=== PATIENT | female | born 1970 | race Caucasian/White ===

== ENCOUNTER 2020-01-23 14:49 | Outpatient (CLI) | payer BC ==
--- NOTE | 2020-01-23 15:37 | ULT ---
BILATERAL CAROTID DUPLEX ULTRASOUND: HISTORY: CVA TECHNIQUE: Grayscale, color-flow and spectral Doppler ultrasound imaging of the extracranial carotid artery syst ems and vertebral arteries was performed bilaterally. FINDINGS: Incidental left and right thyroid nodules, incompletely evaluated. No large amount of echogenic plaque is seen involving the common carotid or internal carotid arteries . The peak systolic velocity in the right ICA measures 48.3 cm/s. The peak systolic velocity in the ri ght CCA measures 67.6 cm/s. The peak systolic velocity in the left ICA measures 75.2 cm/s. The peak systolic velocity in the l eft CCA measures 85.8 cm/s. The right IC/CC ration is0.71. The left IC/CC ratio is 0.88. Vertebral flow: antegrade, bilaterally. . IMPRESSION: 1. No hemodynamically significant stenosis of the left or right internal carotid artery 2. Incidental thyroid nodules. Nonemergent thyroid ultrasound is recommended. Line CODE T
== END 2020-01-23 14:50 | disposition home or self-care (01) ==
LOC: BICULT 14:49
PROVIDERS: ATTEND Family Medicine
DX: I63.511 Cerebral infarction due to unspecified occlusion or stenosis of right middle cerebral artery (principal); E04.2 Nontoxic multinodular goiter
CPT/HCPCS: 93880

== ENCOUNTER 2020-02-06 14:49 | Outpatient (CLI) | payer BC ==
--- NOTE | 2020-02-06 16:39 | ULT ---
ULTRASOUND THYROID: Date: 02/06/2020 HISTORY: 49-year-old female with thyroid nodule found on carotid Doppler ultrasound. COMPARISON: none FINDINGS: Thyroid dimensions: Isthmus: 0.7 cm AP Right lobe: 4.3 x 1.8 x 1.7 cm.. Left lobe: 6.1 x 2.5 x 2.8 cm. Thyroid parenchymal echogenicity:The normal parenchymal in the right lobe has normal echogenicity. Number of thyroid nodules:Multiple on the right, too many to count Nodule # 1: Location: Posterior aspect of right mid pole: Size: 1.3 x 0.8 x 0.8 cm. Composition: Solid: 2. Echogenicity: Hypoechoic: 2 points Shape: Gabrielle than wide: 3 points Margin: Ill-defined: 0 points Echogenic foci: None Total points: 7 TIRADS category:TR 5: Highly suspicious. Recommend FNA if greater than or equal to 1 cm. Nodule # 2: Location: Occupies entire left mid and lower poles, and much of the upper pole.: Size: 4.7 x 3.0 x 4.2 cm. Composition: Solid Echogenicity: Hypoechoic components: 2 points Shape: Wider than tall: 0 points Margin: Smooth: 0 points Echogenic foci: Punctate echogenic foci: 3 points Total points: 7 TIRADS category:TR 5: Highly suspicious. Recommend FNA if greater than or equal to 1 cm. IMPRESSION: 1) large number of small nodules in the right lobe, and one large dominant nodule in left lobe. 2) the large left nodule is TIRADS category:TR 5: Highly suspicious. Recommend ultrasound-guided fine -needle aspiration. 3) of the numerous right thyroid nodules, there is a 1.3 cm nodule that isTIRADS category:TR 5: Highl y suspicious. Recommend ultrasound-guided fine-needle aspiration. This may be technically difficult to biopsy because of its small size and posterior location, given patient's body habitus. If biopsy i s unsuccessful, then serial follow-up thyroid ultrasounds will be recommended for the right nodule.
== END 2020-02-06 14:50 | disposition home or self-care (01) ==
LOC: BICULT 14:49
PROVIDERS: ATTEND Family Medicine
DX: E04.2 Nontoxic multinodular goiter (principal)
CPT/HCPCS: 76536

== ENCOUNTER 2020-08-02 10:42 | Outpatient (CLI) | payer BC ==
--- NOTE | 2020-08-02 11:28 | ULT ---
Exam: Thyroid ultrasound HISTORY: Follow-up thyroid nodules. Multinodular goiter. COMPARISON: 02/06/2020. FINDINGS: Thyroid isthmus: 0.6 cm Right thyroid lobe: 1.7 x 1.6 x 4.5 cm Left thyroid lobe: 3.8 x 2.5 x 6.5 cm Thyroid nodules: Right thyroid lobe: Complex 0.9 x 1.3 x 1.2 cm nodule in the lower pole. Hypoechoic 0.5 x 0.9 x 1.3 c m nodule in the midpole. Left thyroid lobe: Solid nodule occupying the majority of the left thyroid lobe measuring 3.5 x 4.8 x 5.8 cm. Previously, this nodule measured 4.7 x 4.1 x 3.0 cm. IMPRESSION: 1. Left thyroid nodule: TI-RADS category TR5 - Highly suspicious. Fine-needle aspiration of the left thyroid lobe nodule is recommended given sonographic features and interval increase in size. 2. Right thyroid nodules: Largest nodule in the right thyroid lobe was also reported on the previous exam to be a TI-RADS category TR5 - Highly suspicious. There has been no appreciable change. Follow up imaging in one year is recommended. Transcribed Date/Time: 08/02/2020 1:17 PM
== END 2020-08-02 10:43 | disposition home or self-care (01) ==
LOC: BICULT 10:42
PROVIDERS: ATTEND Otolaryngology
DX: E04.9 Nontoxic goiter, unspecified (principal); E04.2 Nontoxic multinodular goiter
CPT/HCPCS: 76536

== ENCOUNTER 2020-09-14 15:51 | Outpatient (CLI) | payer BC | END 2020-09-14 15:52 | disposition home or self-care (01) | LOC: BICMAMMO 15:51 | PROVIDERS: ATTEND Family Medicine | DX: Z12.31 Encounter for screening mammogram for malignant neoplasm of breast (principal) | CPT/HCPCS: 77063; 77067 ==

== ENCOUNTER 2020-11-18 11:57 | Day surgery (SDC) | payer BC ==
[2020-11-17 08:53] VITALS: BMI 49.4
[2020-11-18] MEDS ORDERED: Albuterol Sulfate 2.5 mg/0.5 ml Neb NEB SCH (14:00)
[2020-11-18] MEDS ORDERED: Lidocaine 1% PF 5 ML VIAL ONE (14:15)
[2020-11-18] MEDS ORDERED: PROPOFOL 200 MG/20 ML VIAL ONE (14:15)
== END 2020-11-18 15:56 | disposition home or self-care (01) ==
LOC: SDC 11:57
PROVIDERS: ATTEND Internal Medicine Gastroenterology
PROC: 0DBK8ZX Excision of Ascending Colon, Via Natural or Artificial Opening Endoscopic, Diagnostic (ICD-10-PCS; principal; 2020-11-18)
PROC: 0DBL8ZX Excision of Transverse Colon, Via Natural or Artificial Opening Endoscopic, Diagnostic (ICD-10-PCS; principal; 2020-11-18)
PROC: 0DBN8ZX Excision of Sigmoid Colon, Via Natural or Artificial Opening Endoscopic, Diagnostic (ICD-10-PCS; principal; 2020-11-18)
DX: Z12.11 Encounter for screening for malignant neoplasm of colon (principal); D12.2 Benign neoplasm of ascending colon; D12.3 Benign neoplasm of transverse colon; D12.5 Benign neoplasm of sigmoid colon; K64.8 Other hemorrhoids; Q43.8 Other specified congenital malformations of intestine; E89.0 Postprocedural hypothyroidism; K21.9 Gastro-esophageal reflux disease without esophagitis; I10 Essential (primary) hypertension; E78.00 Pure hypercholesterolemia, unspecified; R73.03 Prediabetes; E66.9 Obesity, unspecified; Z68.42 Body mass index [BMI] 45.0-49.9, adult; Z87.891 Personal history of nicotine dependence; Z79.82 Long term (current) use of aspirin; Z79.84 Long term (current) use of oral hypoglycemic drugs; Z79.899 Other long term (current) drug therapy; Z88.0 Allergy status to penicillin; Z91.048 Other nonmedicinal substance allergy status
CPT/HCPCS: 71045; 88305; J2704; J7611; J7620

== ENCOUNTER 2023-06-05 12:36 | Outpatient (CLI) | payer BC | END 2023-06-05 12:37 | disposition home or self-care (01) | LOC: BICMAMMO 12:36 | PROVIDERS: ATTEND Nurse Practitioner Family | DX: Z12.31 Encounter for screening mammogram for malignant neoplasm of breast (principal) | CPT/HCPCS: 77063; 77067 ==

== ENCOUNTER 2023-12-28 09:29 | Outpatient (CLI) | payer BC ==
[2023-12-28] MEDS ORDERED: E-Z-HD 98% W/W 340GM BOT (x-ray ONLY) ONE (09:51)
[2023-12-28] MEDS ORDERED: Barium Sulfate 96% 176 GM BOT (xray ONLY) ONE (09:51)
== END 2023-12-28 09:30 | disposition home or self-care (01) ==
LOC: RAD 09:29
PROVIDERS: ATTEND Internal Medicine Gastroenterology
DX: K22.2 Esophageal obstruction (principal)
CPT/HCPCS: 74220

== ENCOUNTER 2024-01-01 08:11 | Outpatient (CLI) | payer BC ==
[2024-01-01] MEDS ORDERED: Iopamidol 370 76% 100 ML VIAL ONE (09:54)
== END 2024-01-01 08:12 | disposition home or self-care (01) ==
LOC: CT 08:11
PROVIDERS: ATTEND Internal Medicine Gastroenterology
DX: K22.2 Esophageal obstruction (principal); N20.1 Calculus of ureter; K22.89 Other specified disease of esophagus; R91.8 Other nonspecific abnormal finding of lung field
CPT/HCPCS: 71260; 74177; Q9967

== ENCOUNTER 2024-04-04 09:50 | Outpatient (CLI) | payer BC | END 2024-04-04 09:51 | disposition home or self-care (01) | LOC: BICULT 09:50 | PROVIDERS: ATTEND Urology | DX: N20.2 Calculus of kidney with calculus of ureter (principal) | CPT/HCPCS: 74018; 76770 ==